=== PATIENT | female | born 2000 | race Two or more races ===

== ENCOUNTER 2021-07-05 17:00 | Inpatient (IN) | payer OTHER ==
[~2021-07-05] VITALS: Ht 160 cm; Wt 69.9 kg
[2021-07-07] MEDS ORDERED: RHOGAM ULTR1500 UNIT IM (07:48)
== END 2021-07-07 13:10 | disposition home or self-care (01) | DRG 807 ==
LOC: OB/GYN 17:00 → LDR 17:00 → OB/GYN 19:32
PROVIDERS: ADMIT Specialist; ATTEND Specialist
PROC: 10E0XZZ Delivery of Products of Conception, External Approach (ICD-10-PCS; principal; 2021-07-05)
PROC: 4A1HXFZ Monitoring of Products of Conception, Cardiac Rhythm, External Approach (ICD-10-PCS; 2021-07-05)
DX: O42.013 Preterm premature rupture of membranes, onset of labor within 24 hours of rupture, third trimester (principal); Z37.0 Single live birth; Z3A.34 34 weeks gestation of pregnancy

== ENCOUNTER 2023-07-08 01:11 | Outpatient (CLI) | payer OTHER ==
[~2023-07-08 01:11] MED LIST: RHOGAM ULTR1500 UNIT IM
[2023-07-08] MEDS ORDERED: ACETAMINOPHEN500 M2 PO (02:42)
[2023-07-08] MEDS ORDERED: TUMS200 MG PO (02:44)
[2023-07-08] MEDS ORDERED: FERROUS SULFAT325 MG PO (07:48)
== END 2023-07-08 10:14 | disposition home or self-care (01) ==
LOC: OBS/DEL 01:11
PROVIDERS: ATTEND Specialist
DX: O26.893 Other specified pregnancy related conditions, third trimester (principal); O99.013 Anemia complicating pregnancy, third trimester; R51.9 Headache, unspecified; Z3A.35 35 weeks gestation of pregnancy

== ENCOUNTER 2023-07-21 02:47 | Inpatient (IN) | payer OTHER ==
[~2023-07-21] VITALS: Ht 160 cm; Wt 64.9 kg
[~2023-07-21 02:47] MED LIST changes: +ACETAMINOPHEN500 M2 PO; +FERROUS SULFAT325 MG PO; +TUMS200 MG PO
[2023-07-22] MEDS ORDERED: RHOGAM ULTR1500 UNIT IM (06:08)
== END 2023-07-23 15:09 | disposition home or self-care (01) | DRG 807 ==
LOC: OB/GYN 02:47 → LDR 02:47 → OB/GYN 08:50
PROVIDERS: ADMIT Specialist; ATTEND Specialist
PROC: 10E0XZZ Delivery of Products of Conception, External Approach (ICD-10-PCS; principal; 2023-07-21)
PROC: 4A1HXCZ Monitoring of Products of Conception, Cardiac Rate, External Approach (ICD-10-PCS; 2023-07-21)
DX: O80 Encounter for full-term uncomplicated delivery (principal); Z37.0 Single live birth; Z3A.37 37 weeks gestation of pregnancy; Z20.822 Contact with and (suspected) exposure to COVID-19